=== PATIENT | female | born 1970 | race Caucasian/White ===

== ENCOUNTER 2018-12-03 23:26 | Emergency (ER) | payer MEDICAID ==
[~2018-12-03] VITALS: Ht 165.1 cm; Wt 117.9 kg
[2018-12-03] MEDS ORDERED: GABAPENTIN100 MG PO (23:44)
[2018-12-04] MEDS ORDERED: NORCO 5-325 TA1 EACH PO (01:07)
[2018-12-04] MEDS ORDERED: CRUTCH1 EACH (01:08)
== END 2018-12-04 01:32 | disposition home or self-care (01) ==
LOC: ED 23:26
DX: S76.011A Strain of muscle, fascia and tendon of right hip, initial encounter (principal); S80.01XA Contusion of right knee, initial encounter; I10 Essential (primary) hypertension; F17.200 Nicotine dependence, unspecified, uncomplicated; Z88.1 Allergy status to other antibiotic agents; Z88.5 Allergy status to narcotic agent; W01.0XXA Fall on same level from slipping, tripping and stumbling without subsequent striking against object, initial encounter
CPT/HCPCS: 73502; 73560; 96374; 96375; 96376; 99283-25; J1170; J2405